=== PATIENT | female | born 1970 | race Caucasian/White ===

== ENCOUNTER 2025-06-28 11:33 | Emergency (ER) | payer OTHER ==
[2025-06-28] MEDS ORDERED: Ketorolac Tromethamine 30 MG (1 mL) VIAL ONE (12:39)
[2025-06-28 12:58] LABS: #Basophils Less than 0.03 10x3/uL (0.0-0.2); #Eosinophils Less than 0.03 10x3/uL (0.0-0.5); #Monocytes 0.83 10x3/uL (0.0-1.1); #Neutrophils 10.67 10x3/uL (1.5-8.4); %Basophils 0.2 % (0.0-2.0); %Eosinophils 0.0 % (0.0-6.0); %Lymphocytes 8.9 % (18.0-47.0); %Monocytes 6.5 % (0.0-10.0); %Neutrophils 83.8 % (40.0-75.0); Hematocrit 34.8 % (34.9-44.5); Hemoglobin 12.0 g/dL (12.0-15.5); Mean Corpuscular Hemoglobin 29.3 pg (27.0-33.0); Mean Corpuscular Volume 84.9 fL (81.6-98.3); Platelet Count 175 10x3/uL (150-450); Red Blood Cell (RBC) Count 4.10 10x6/uL (3.90-5.03); White Blood Cell (WBC) Count 12.74 10x3/uL (3.5-10.5)
[2025-06-28 13:07] LABS: ALT (SGPT) 21 U/L (Less than 34); AST (SGOT) 37 U/L (11-34); Albumin 2.6 g/dL (3.1-4.5); Alkaline Phosphatase 99 U/L (40-110); Anion Gap 15 mmol/L (10-20); BUN (Urea Nitrogen) 16 mg/dL (9.8-20.1); Bilirubin, Total 1.3 mg/dL (0.3-1.2); Calc. Creatinine Clearance 0 mL/min (70-130); Calcium 8.8 mg/dL (7.8-10.44); Carbon Dioxide 23 mmol/L (22-29); Chloride 97 mmol/L (98-107); Globulin 4.0 g/dL (2.4-3.5); Glucose 215 mg/dL (70-105); Potassium 3.3 mmol/L (3.5-5.1); Sodium 132 mmol/L (136-145)
[2025-06-28 14:27] LABS: Glucose, Urine (Dipstick) Normal (Negative); Leukocyte 100 (Negative); Protein, Urine (Dipstick) 100 mg/dl (Neg-Trace); Specific Gravity, Urine 1.015 (1.005-1.030)
[2025-06-28 14:54] LABS: Bacteria/HPF 2+ HPF (None Seen); CAUTI Indications for Culture Alt mental st,lethar; RBC/HPF 0-3 HPF (0-3)
[2025-06-28 14:55] LABS: Urine Culture Reflex Yes Yes
== END 2025-06-28 15:09 | disposition home or self-care (01) ==
LOC: CSHERS 11:33
DX: J06.9 Acute upper respiratory infection, unspecified (principal); N39.0 Urinary tract infection, site not specified; I12.9 Hypertensive chronic kidney disease with stage 1 through stage 4 chronic kidney disease, or unspecified chronic kidney disease; N18.30 Chronic kidney disease, stage 3 unspecified; E11.22 Type 2 diabetes mellitus with diabetic chronic kidney disease; E11.40 Type 2 diabetes mellitus with diabetic neuropathy, unspecified; F17.290 Nicotine dependence, other tobacco product, uncomplicated
CPT/HCPCS: 71045; 80053; 81001; 85025; 87077; 87086; 87186; 87428; 96374; J1885